=== PATIENT | female | born 1965 | race American Indian/Alaskan Native ===

== ENCOUNTER 2020-10-30 11:11 | Day surgery (SDC) | payer BC ==
[2020-10-30] MEDS ORDERED: SODIUM CHLORIDE 0.9% 500 ML 500 ML IV SCH (12:00)
[2020-10-30 12:20] LABS: Hematocrit 31.8 % (30.3-42.9); Hemoglobin 10.9 gm/dl (10.1-14.3); Mean Corpuscular HGB Conc 34 % (30-34); Mean Corpuscular Volume 73 fl (79-97); Platelet Count 200 K/mm3 (140-440); Red Blood Count 4.38 M/mm3 (3.65-5.03); Red Cell Distribution Width 17.1 % (13.2-15.2)
[2020-10-30 12:31] LABS: BUN/Creatinine Ratio 17; Blood Urea Nitrogen 10 mg/dL (7-17); Calcium 10.2 mg/dL (8.4-10.2); Hemolysis Index 17
[2020-10-30] MEDS ORDERED: MIDAZOLAM 2 MG/2 ML INJ ONE (12:42)
[2020-10-30] MEDS ORDERED: fentaNYL 100 MCG/2 ML INJ ONE (12:43)
[2020-10-30] MEDS ORDERED: SODIUM CHLORIDE IRRI 500 ML 500 ML IR ONE (12:44)
[2020-10-30] MEDS ORDERED: BUPIVACAINE/PF (0.5%) 5 MG/1 ML 10 ML VIAL INFILTRATI ONE (12:44)
[2020-10-30] MEDS ORDERED: LIDOCAINE (2%) 20 MG/1 ML VIAL 20 ML MDV INFILTRATI ONE ×2 (12:45→13:27)
[2020-10-30] MEDS ORDERED: ceFAZolin/Water 2 GM/20 ML 2 GM/20 ML SYRINGE IV ONE (12:46)
[2020-10-30 12:56] LABS: INR 0.9 (0.87-1.13)
[2020-10-30 12:57] LABS: Partial Thromboplastin Time 27.7 Sec. (24.2-36.6)
--- NOTE | 2020-10-30 14:09 | Short Stay Summary ---
Short Stay Documentation Date of service: 10/30/20 - History H&P: obtained from office - Allergies and Medications Current Medications: Allergies NSAIDS (Non-Steroidal Anti-Inflamma Adverse Reaction (Unverified 10/30/20 11:13) Nausea Home Medications Medication Instructions Recorded Confirmed Last Taken Type Desvenlafaxine [Khedezla] 100 mg PO DAILY 10/30/20 10/30/20 10/29/20 History 100 mg Active Medications Sodium Chloride (Nacl 0.9% 500 Ml) 500 mls @ 50 mls/hr IV DIRECT IRINEO Last Admin: 10/30/20 13:06 Dose: 100 mls Documented by: - Physical exam Integumentary: other - Brief post op/procedure progress note Pre-op diagnosis: loop recorder Post-op diagnosis: same Anesthesia: local Estimated blood loss: minimal - Disposition Condition at discharge: Good Disposition: [id number] TO HOME OR SELFCARE - Discharge Diagnoses (1) History of loop recorder Status: Acute Short Stay Discharge Plan Activity: advance as tolerated Diet: low fat, low cholesterol, low salt Wound: keep clean and dry, per your surgeon's advice Additional Instructions: Patient has an incision check,[facility], on 11/05/2020 at 10am at our [place] location Follow up with: JULES BELL [Other] - 7 Days
[2020-10-30 15:28] VITALS: BP 135/80
[2020-10-30 16:43] LABS: Hypochromasia 1+; Total Cells Counted 100
[2020-10-30 16:44] LABS: Giant Platelets Rare; Platelet Estimate Consistent w Auto
--- NOTE | 2020-10-31 10:05 | Electrophysiological Studies ---
DATE OF SERVICE: 10/30/2020 TYPE OF PROCEDURE: Implantable loop recorder removal. DESCRIPTION OF PROCEDURE: The patient was brought to the laboratory mechanical technician. The patient was then prepped and draped in the usual sterile fashion. Local anesthesia was obtained using 2% lidocaine. Antibiotics were given prior to the procedure for surgical prophylaxis. A 1 cm incision was made in the left chest. Using blunt dissection, I dissected down to the loop recorder. We removed the device from the pocket. Next, the pocket was irrigated with normal saline and inspected to ensure hemostasis. CLOSURE: Using 2-0 Vicryl and 4-0 Vicryl. The incision was then protected with Steri-Strips, gauze, and a clear adhesive dressing was applied. COMPLICATIONS: None. ESTIMATED BLOOD LOSS: Less than 1 mL. ASSESSMENT: Successful removal of implantable loop recorder. PLAN: Follow up for incision check in 7 to 10 days. TID: [id number] RECEIPT: [id number] THIAGO/NURYS
== END 2020-10-30 15:42 | disposition home or self-care (01) ==
LOC: EDBD 11:11 → CATHLABREC 11:11
PROVIDERS: ATTEND Internal Medicine Cardiovascular Disease
DX: R00.2 Palpitations (principal); F32.9 Major depressive disorder, single episode, unspecified; Z79.899 Other long term (current) drug therapy; Z98.84 Bariatric surgery status; Z98.890 Other specified postprocedural states
CPT/HCPCS: 33286; 36415; 80048; 85007; 85025; 85610; 85730; J0690; J2250; J3010; J7040